=== PATIENT | male | born 1965 | race Caucasian/White ===

== ENCOUNTER 2020-05-08 11:45 | Emergency (ER) | payer BC, MEDICAID ==
[~2020-05-08] VITALS: Ht 177.8 cm; Wt 86.2 kg
--- NOTE | 2020-05-08 11:54 | NUR ---
PT BIBA FROM 'S OFFICE IN [place] FOR SEIZURE 10 MINS AGO. PT WAS FOUND LYING ON THE EXAM TABLE AND HAVING A SEIZURE WHICH LASTED ABOUT 1 MINUTE. EMS, DENIES HEAD TRAUMA OR FALL DURING THE SEIZURE. PT HAD LAST EPISODE OF SEIZURE WAS IN 1998. PT WAS IN THE OFFICE FOR FOLLOW UP HIS LEFT FLANK PAIN AND KIDNEY STONES. PT STATES HE FEELS TIRED AND HAS PAIN ON THE LEFT FLANK AREA WITH DULL SENSATION AND 6/10 INTENSITY. DENIES DIZZINESS, COUGH, FEVER, SOB, CP, OR BURNING URINATION. POSITIVE CVAT ON THE LEFT FLANK AREA. PMH: PASSED KIDNEY STONES LEFT, SEIZURE
[2020-05-08 12:02] VITALS: BP 138/81
[2020-05-08 12:57] LABS: BASOPHILS # (AUTO) 0.1 K/uL (0.00-0.22); BASOPHILS % (AUTO) 0.9 % (0.0-2.0); EOSINOPHILS # (AUTO) 0.2 K/uL (0-0.4); EOSINOPHILS % (AUTO) 2.9 % (0.0-4.0); HEMATOCRIT 49.4 % (36-52); HEMOGLOBIN 16.9 g/dL (12.0-18.0); LYMPHOCYTES # (AUTO) 1.9 K/uL (2.0-11.5); LYMPHOCYTES % (AUTO) 32.9 % (20.5-51.1); MEAN CORPUSCULAR HEMOGLOBIN 31 pg (27-31); MEAN CORPUSCULAR HGB CONC 34 g/dL (33-37); MEAN CORPUSCULAR VOLUME 90.1 fL (80-94); MONOCYTES # (AUTO) 0.7 K/uL (0.8-1.0); MONOCYTES % (AUTO) 11.6 % (1.7-9.3); NEUTROPHILS # (AUTO) 3.1 K/uL (1.8-7.7); NEUTROPHILS % (AUTO) 51.7 % (42.2-75.2); PLATELET COUNT (AUTO) 210 K/uL (140-450); RED BLOOD CELL COUNT(AUTO) 5.49 MIL/uL (4.20-6.10); RED CELL DISTRIBUTION WIDTH 13.6 % (11.6-13.7); WHITE BLOOD COUNT (AUTO) 5.9 K/uL (4.8-10.8)
[2020-05-08 13:54] LABS: ALBUMIN 4.3 g/dL (3.4-5.0); CARBON DIOXIDE 24.9 mmol/L (21-32); CREATININE 0.8 mg/dL (0.6-1.3); POTASSIUM 3.9 mmol/L (3.5-5.1); TOTAL BILIRUBIN 0.5 mg/dL (0.0-1.0)
[2020-05-08 16:09] VITALS: BP 129/85
--- NOTE | 2020-05-08 16:20 | NUR ---
Patient medically cleared for discharge by MD. Advised to follow up with PCP or return to ED if symptoms return or worsen. IV D/C'd left AC, manual pressure held, cannula intact, bleeding controlled. Given copy of discharge instructions. Patient verbalized understanding of instructions. Gait steady, ID band removed. All belongings taken with patient.
== END 2020-05-08 16:20 | disposition home or self-care (01) ==
LOC: MED 11:45
DX: R56.9 Unspecified convulsions (principal); R10.9 Unspecified abdominal pain; Z88.4 Allergy status to anesthetic agent; Z88.5 Allergy status to narcotic agent; Z98.890 Other specified postprocedural states; Z96.643 Presence of artificial hip joint, bilateral
CPT/HCPCS: 36415; 70450; 80053; 81002; 85025; 99284